=== PATIENT | female | born 1985 | race Hispanic/Latino ===

== ENCOUNTER 2021-06-08 16:46 | Emergency (ER) | payer MEDICARE ==
[~2021-06-08] VITALS: Ht 157.5 cm; Wt 49.9 kg
[2021-06-08] MEDS ORDERED: KETOROLAC TROMETHAMINE 30 MG/ML VIAL IV STA (18:02)
[2021-06-08] MEDS ORDERED: SODIUM CHLORIDE 0.9% 500ML 500 ML IV ONE (18:15)
[2021-06-08] MEDS ORDERED: SODIUM CHLORIDE 0.9% 50ML 50 ML ONE ×2 (18:29→20:07)
[2021-06-08] MEDS ORDERED: IOPAMIDOL 370 MG/ML 200 ML INFUS..BTL INJ ONE (18:29)
[2021-06-08] MEDS ORDERED: KETOROLAC TROMETHAMINE 30 MG/ML VIAL ONE (18:31)
[2021-06-08] MEDS ORDERED: SODIUM CHLORIDE 0.9% 500ML 500 ML ONE (18:32)
[2021-06-08] MEDS ORDERED: CEFTRIAXONE 1 GM in SODIUM CHLORIDE 0.9% 50ML 50 ML IV ONE (19:45)
[2021-06-08] MEDS ORDERED: CEFTRIAXONE 1 GM VIAL ONE (20:07)
[2021-06-08] MEDS ORDERED: METHYLPREDNISOLONE SOD SUCC 125 MG/2ML VIAL IV ONE (20:45)
[2021-06-08] MEDS ORDERED: METHYLPREDNISOLONE SOD SUCC 125 MG/2ML VIAL ONE (20:50)
[2021-06-08 22:07] VITALS: BP 152/107
[2021-06-08] MEDS ORDERED: LISINOPRIL10 MG PO (22:09)
[2021-06-08] MEDS ORDERED: PREDNISONE20 MG PO (22:09)
[2021-06-08] MEDS ORDERED: PLAQUENIL200 MG PO (22:10)
[2021-06-08] MEDS ORDERED: CEFUROXIME500 MG PO (22:14)
== END 2021-06-08 22:27 | disposition home or self-care (01) ==
LOC: FSED 16:55
DX: R06.02 Shortness of breath (principal); R07.9 Chest pain, unspecified; N39.0 Urinary tract infection, site not specified; M32.9 Systemic lupus erythematosus, unspecified; D64.9 Anemia, unspecified; R60.9 Edema, unspecified; I10 Essential (primary) hypertension; Z20.822 Contact with and (suspected) exposure to COVID-19
CPT/HCPCS: 71260; 80053; 81003; 81025; 82553; 83880; 84484; 85025; 87086; 93005; 96374; 96375; 99284; J0696; J1885; J2930; J7040; Q9967; U0002

== ENCOUNTER 2021-12-19 12:57 | Emergency (ER) | payer MEDICARE ==
[~2021-12-19] VITALS: Ht 157.5 cm; Wt 54.0 kg
[~2021-12-19 12:57] MED LIST: CEFUROXIME500 MG PO; LISINOPRIL10 MG PO; PLAQUENIL200 MG PO; PREDNISONE20 MG PO
[2021-12-19] MEDS ORDERED: CLONIDINE HCL 0.2 MG TAB PO ONE (13:15)
[2021-12-19] MEDS ORDERED: CLONIDINE HCL 0.1 MG TAB ONE (13:38)
[2021-12-19] MEDS ORDERED: ATENOLOL50 MG PO (13:55)
[2021-12-19] MEDS ORDERED: LOSARTAN-HCTZ1 EACH PO (13:55)
[2021-12-19] MEDS ORDERED: HYDRALAZINE HCL 20 MG/ML VIAL ONE (14:17)
[2021-12-19 14:27] VITALS: BP 161/102
== END 2021-12-19 14:29 | disposition home or self-care (01) ==
LOC: FSED 13:02
DX: M32.9 Systemic lupus erythematosus, unspecified (principal); I16.0 Hypertensive urgency; I11.0 Hypertensive heart disease with heart failure; I50.9 Heart failure, unspecified; D64.9 Anemia, unspecified
CPT/HCPCS: 71046; 80053; 81003; 82553; 83880; 84484; 85025; 93005; 99284; J0360